=== PATIENT | female | born 1950 | race Caucasian/White ===

== ENCOUNTER → 2019-10-12 | Outpatient (CLI) | payer OTHER ==
--- NOTE | 2019-10-12 15:55 | KCIC ---
Bilateral digital screening mammograms and tomosynthesis Reason for examination: Routine screening.History of prior benign breast biopsy. Family history of breast cancer the patient's mother and an aunt. Comparison is made to previous study dated May 29, 2017 Routine CC and MLO digital views obtained. Interpretation was made with the benefit of CAD. The skin and nipples show no abnormalities. No abnormal axillary lymph nodes are seen. The breast parenchyma is heterogeneously dense. (Breast density: Category C.) There are no suspicious calcifications or architectural distortion. At the right retroareolar breast 2 cm from nipple there is an oval circumscribed 0.8 cm low-density mass on MLO tomosynthesis image 40 and CC tomosynthesis image 30 not apparent on the prior study. At the left inner lower subareolar breast 1 cm from the nipple on CC tomosynthesis image 30 and MLO tomosynthesis image 37 there is a 1.2 cm oval partially circumscribed mass or prominent ductal structure not apparent on the prior study. At the left axillary tail tissue on the MLO view at the site of prior surgical biopsy there is increased glandular asymmetry. Impression: Bilateral breast masses and left axillary tail asymmetry as described above. Further assessment with bilateral breast ultrasound is advised. ?Your patient's mammogram demonstrates that she has dense breast tissue (breast density category C or D), which could hide abnormalities, and if she has other risk factors for breast cancer that have been identified, she might benefit from supplemental screening tests that may be suggested by you as her ordering physician. Dense breast tissue, in and of itself, is a relatively common condition. Therefore, this information is not provided to cause undue concern, but rather to raise your awareness and to promote discussion with your patient regarding the presence of other risk factors, in addition to dense breast tissue. Your patient's mammography results will be sent to her. BI-RAD Category 0: Incomplete examination. "Our facility is accredited by the [employer] Mammography [employer]." This patient's information has been entered into a reminder system for the patient to be notified with the results of her examination and a target date for the next mammogram. Electronically signed by: Ben Harris MD (10/12/2019 3:52 PM) [email or web address]
--- NOTE | 2019-10-12 16:32 | KCIC ---
INDICATION: Osteoporosis screening. Postmenopausal screening COMPARISON: None. TECHNIQUE: Bone densitometry was performed through the lumbar spine and proximal femur. FINDINGS: Lumbar Spine: BMD: 0.9 T-Score: -1.3 Proximal Femur: BMD: 0.82 T-Score: -1 IMPRESSION: 1. Lumbar spine falls within the osteopenic range. 2. Proximal femur falls within the osteopenic range. Electronically signed by: Mikie Jarrett MD (10/12/2019 4:29 PM) [id number]
== END ==
LOC: KCIC MAMMO 12:48
PROVIDERS: ATTEND Family Medicine
DX: Z12.31 Encounter for screening mammogram for malignant neoplasm of breast (principal); M85.89 Other specified disorders of bone density and structure, multiple sites; N63.20 Unspecified lump in the left breast, unspecified quadrant; N63.10 Unspecified lump in the right breast, unspecified quadrant; N63.32 Unspecified lump in axillary tail of the left breast; N63.31 Unspecified lump in axillary tail of the right breast; Z80.3 Family history of malignant neoplasm of breast; Z78.0 Asymptomatic menopausal state
CPT/HCPCS: 77063; 77067; 77080

== ENCOUNTER → 2019-10-20 | Outpatient (CLI) | payer OTHER ==
--- NOTE | 2019-10-20 20:09 | KCIC ---
Bilateral breast ultrasound: Reason for examination: Nodules on screening mammogram. Comparison is made to mammographic exam dated 10/12/2019. Ultrasound examination was performed bilaterally in the areas of mammographic concern and at the axilla. In the right breast in the retroareolar position corresponding to the mammographic finding, there is a 7.6 mm hypoechoic circumscribed lesion which probably represents a complicated cyst or cystic ductal ectasia. No other cystic or solid nodules are seen and no abnormal appearing lymph nodes are seen in the right axilla. In the left breast, there appears to be some ductal ectasia in the 6:00 position 1 cm from the nipple measuring 1.2 cm in greatest dimension. There is also a 7 mm hypoechoic fibrocystic lesion in parallel orientation at the 6:00 position 5 cm from the nipple. There is a 9.3 mm hypoechoic circumscribed lesion in parallel orientation at 8:00 position 6 cm from the nipple which has a benign fibrocystic appearance. There is a calcification at the 9:00 position 9 cm from the nipple. No abnormal appearing lymph nodes are seen in the axilla. IMPRESSION: Complicated cyst or cystic ductal ectasia in the retroareolar position of the right breast. Small benign-appearing fibrocystic type lesions at the 6:00 and 8:00 positions and ductal ectasia in the 6:00 position 1 cm from the nipple in the left breast. Recommend reevaluation with ultrasound in 6 months. BI-RADS Category 3: Probably Benign. "Our facility is accredited by the [employer] Mammography [employer]." This patient's information has been entered into a reminder system for the patient to be notified with the results of her examination and a target date for the next mammogram. Electronically signed by: Lucretia Bautista MD (10/20/2019 8:06 PM) [email or web address]
== END ==
LOC: KCIC US 13:35
PROVIDERS: ATTEND Family Medicine
DX: N60.12 Diffuse cystic mastopathy of left breast (principal); N60.42 Mammary duct ectasia of left breast
CPT/HCPCS: 76641

== ENCOUNTER → 2020-12-06 | Outpatient (CLI) | payer MEDICARE ==
--- NOTE | 2020-12-06 17:38 | KCIC ---
Procedure: Diagnostic bilateral 2-D and 3-D mammogram and targeted bilateral breast ultrasound. INDICATION: Follow-up of the probably benign findings in both breasts. COMPARISON: Mammograms from 10/12/2019 and 05/27/2017. Bilateral breast ultrasound from 10/20/2019. FINDINGS MAMMOGRAM: Breast density: Category C. The breasts are heterogeneously dense, which may obscure small masses. Again seen is a 0.8 cm oval circumscribed mass in the retroareolar region of the right breast. There is a gently lobulated oval circumscribed mass in the retroareolar/7:00 position of the left breast me asuring 1.3 cm. There are unchanged vague areas of nodularity in both breasts. No malignant appearing calcifications or architectural distortion is seen. FINDINGS TARGETED BILATERAL BREAST ULTRASOUND: The areas of concern on previous ultrasound were evaluated, retroareolar region of the right breast, and the 6:00 and 8:00 region of the left breast . Both axilla were imaged. In the retroareolar region of the right breast, there is an oval circumscribed hypoechoic 0.7 cm mass which correlates with the mass seen on mammogram. This has low-level internal echoes. It likely repr esents a complicated cyst. In the 6:00 position of the left breast, 1 cm from the nipple, there is an oval hypoechoic gently lob ulated mass measuring 1.2 cm maximum dimension. This correlates with the mass seen on mammogram at 7: 00 in the retroareolar region. In the 6:00 position of the left breast, 5 cm from the nipple, there is an oval circumscribed hypoech oic mass measuring 9 mm in maximum dimension which is unchanged previous ultrasound. No adenopathy is seen in either axilla. IMPRESSION: There are unchanged benign-appearing masses in both breasts. No suspicious breast mass is seen. The masses have been stable for slightly more than one year. A follow-up bilateral 3-D mammogr am and targeted bilateral breast ultrasound in one year is recommended. ASSESSMENT: BI-RADS 3. Probably benign findings. Short interval follow-up is recommended. Recommendations: Bilateral diagnostic mammogram and bilateral targeted breast ultrasound in one year. Results are given to the patient at time of examination.This patient's information has been entered i nto a reminder system for the patient to be notified with the results of her examination and a target date for the next mammogram. Your patient's mammogram demonstrates that she has dense breast tissue (breast density category C or D), which could hide abnormalities, and if she has other risk factors for breast cancer that have bee n identified, she might benefit from supplemental screening tests that may be suggested by you as her ordering physician. Dense breast tissue, in and of itself, is a relatively common condition. Therefo re, this information is not provided to cause undue concern, but rather to raise your awareness and t o promote discussion with your patient regarding the presence of other risk factors, in addition to d ense breast tissue. Electronically signed by: Sarita Leone MD (12/06/2020 5:36 PM) [email or web address]
== END ==
LOC: KCIC MAMMO 08:23
PROVIDERS: ATTEND Family Medicine
DX: N63.24 Unspecified lump in the left breast, lower inner quadrant (principal); N63.10 Unspecified lump in the right breast, unspecified quadrant
CPT/HCPCS: 76641; 77066; G0279; 77062